=== PATIENT | female | born 2000 | race Caucasian/White ===

== ENCOUNTER 2020-11-09 22:55 | Emergency (ER) | payer OTHER ==
[~2020-11-09] VITALS: Ht 157.5 cm; Wt 58.2 kg
[2020-11-09 23:33] LABS: BASO % 0.3 % (0.0-2.0); EOS # 0.1 (0.0-0.7); EOS % 0.9 % (0-4.0); GRAN # 4.7 (1.4-6.5); GRAN % 51.7 % (42.2-75.2); HEMATOCRIT 40.3 % (35.0-45.0); HEMOGLOBIN 14.1 g/dl (12.0-15.0); LYMPH # 3.3 (1.2-3.4); LYMPH % 36.5 % (20.0-51.0); MEAN CELL VOLUME 90 fl (80.0-95.0); MEAN CORPUSCULAR HEMOGLOBIN 32 pg (26.0-32.0); MEAN CORPUSCULAR HGB CONC 35 g/dl (33.0-37.0); MEAN PLATELET VOLUME 10.5 fl (7.4-10.4); MONO % 10.4 % (1.7-9.3); PLATELET COUNT 254 K/mm3 (130-400); RED BLOOD COUNT 4.47 M/mm3 (4.10-5.30); REDCELL DISTRIBUTION WIDTH-CV 11.5 % (11.5-14.5)
[2020-11-09 23:42] LABS: ALBUMIN 4.8 gm/dL (3.5-5.0); BILIRUBIN,TOTAL 0.4 mg/dL (0.0-1.0); CALCIUM 9.3 mg/dL (8.4-10.2); CREATININE, serum 0.8 (0.52-1.25); POTASSIUM 3.8 mmol/L (3.4-5.0); TOTAL PROTEIN 8.1 gm/dL (6.4-8.2)
[2020-11-09 23:56] LABS: TRICYCLIC ANTIDEPRESS URINE NEGATIVE
[2020-11-10 04:10] VITALS: BP 113/62; PULSE 90; TEMP 98.1
== END 2020-11-10 04:17 | disposition home or self-care (01) ==
LOC: COL.ER 22:55
PROVIDERS: Physician Assistant
DX: F10.129 Alcohol abuse with intoxication, unspecified (principal); Y90.6 Blood alcohol level of 120-199 mg/100 ml
CPT/HCPCS: J2060; J2405; J2765; J7030

== ENCOUNTER 2020-12-28 01:35 | Emergency (ER) | payer OTHER ==
[~2020-12-28] VITALS: Ht 157.5 cm; Wt 56.8 kg
[2020-12-28 01:46] VITALS: TEMP 98.4
[2020-12-28 03:15] VITALS: BP 131/72; PULSE 89
== END 2020-12-28 03:15 | disposition home or self-care (01) ==
LOC: COL.ER 01:35
DX: S93.401A Sprain of unspecified ligament of right ankle, initial encounter (principal); S90.31XA Contusion of right foot, initial encounter; W50.0XXA Accidental hit or strike by another person, initial encounter; Y92.009 Unspecified place in unspecified non-institutional (private) residence as the place of occurrence of the external cause